=== PATIENT | female | born 1955 | race Caucasian/White ===

== ENCOUNTER 2018-09-10 13:35 | Emergency (ER) | payer OTHER ==
[2018-09-10] MEDS: KETOROLAC 30 MG INJ IM (16:39)
== END 2018-09-10 16:42 | disposition home or self-care (01) ==
LOC: E/R 13:35 → FTE 16:42
DX: M79.604 Pain in right leg (principal)
CPT/HCPCS: 73590; 96372; 99284-25

== ENCOUNTER 2018-11-27 01:59 | Emergency (ER) | payer OTHER ==
[2018-11-27] MEDS: KETOROLAC 30 MG INJ IM (03:32)
[2018-11-27] MEDS: HYDROCODONE/APAP (5/325) TAB PO (03:32)
== END 2018-11-27 04:13 | disposition home or self-care (01) ==
LOC: FTE 01:59
DX: M79.604 Pain in right leg (principal); I10 Essential (primary) hypertension
CPT/HCPCS: 96372; 99284-25

== ENCOUNTER 2019-03-28 09:48 | Emergency (ER) | payer OTHER ==
[2019-03-28] MEDS: DEXAMETHASONE 10 MG/ML 1 ML INJ IM (10:15)
[2019-03-28] MEDS: KETOROLAC 60 MG INJ IM (10:16)
== END 2019-03-28 10:37 | disposition home or self-care (01) ==
LOC: FTE 09:48
DX: G89.29 Other chronic pain (principal); I10 Essential (primary) hypertension
CPT/HCPCS: 82962; 96372; 99284-25